=== PATIENT | male | born 1960 | race Caucasian/White ===

== ENCOUNTER 2018-05-13 17:00 | Emergency (ER) | payer SELFPAY ==
[~2018-05-13] VITALS: Ht 185.4 cm; Wt 113.4 kg
--- NOTE | 2018-05-13 17:20 | ED UPPER/LOWER EXTREMITY COMPL ---
History of Present Illness General Chief Complaint: Laceration Procedure Stated Complaint: RLE LAC Source: patient Exam Limitations: no limitations Vital Signs & Intake/Output Vital Signs & Intake/Output Vital Signs Date Time Temp Pulse Resp B/P B/P Pulse O2 O2 Flow FiO2 Mean Ox Delivery Rate 05/13 1810 Room Air 05/13 1722 98.2 92 22 141/77 94 Room Air Allergies Coded Allergies: No Known Allergies (05/13/18) Reconcile Medications Aspirin (Ecotrin*) 81 MG TABLET.DR 1 TAB PO DAILY HEART/BLOOD (Reported) Buprenorphine HCl/Naloxone HCl (Buprenorphn-Naloxn 2-0.5 MG Sl) 2 MG-0.5 MG TAB.SUBL 1 TAB SL Q3-4D MENTAL HEALTH (Reported) Eszopiclone (Lunesta) 2 MG TABLET 1 TAB PO QPM SLEEP (Reported) Metformin HCl 500 MG TABLET 1 TAB PO BID DM (Reported) Triage Note: PT BIBA FROM HOME WITH C/O RLE LACERATION. PT STATES HE WAS MOVING FURNITURE AND HE BUMPED AGAINST HIS LEG AGAINST A METAL BED FRAME. PT STATES LEG WAS BLEEDING TO THE POINT THAT HIS SOCK WAS SATURATED. PT ARRIVES AWAKE AND ALERT, C/O 9/10 RLE PAIN; REQUESTING MEDICATIONS ON ARRIVAL. BLEEDING CONTROLLED INTERNAL MEDICINE DOCTOR. 3CM VERTICAL WOUND VISUALIZED ON RIGHT COOPER. APPEARS CONFUSED, AND ANSWERS SOME QUESTIONS INAPPROPRIATELY Triage Nurses Notes Reviewed? yes Onset: Gradual Duration: hour(s): Timing: recent history Severity: moderate Pain/Injury Location: Right: Leg. HPI: 58-year-old male brought in by ambulance for laceration to right chin. Patient states that he was moving a cabinette when he accidentally sustained laceration anterior cooper. Bleeding was controlled prior to arrival. PAtient reports chronic swelling to right lower extremity however does note recent worsening. Patient states he is up-to-date on his tetanus vaccine. (Elvira Mcdonald) Past History Medical History Any Pertinent Medical History? see below for history Endocrine: diabetes Surgical History Surgical History: non-contributory Family History Hx Contributory? No (Elvira Mcdonald) Review of Systems Review of Systems Constitutional: Reports: no symptoms. EENTM: Reports: no symptoms. Respiratory: Reports: no symptoms. Cardiovascular: Reports: edema. Gastrointestinal/Abdominal: Reports: no symptoms. Genitourinary: Reports: no symptoms. Musculoskeletal: Reports: see HPI. Skin: Reports: see HPI. Neurological/Psychological: Reports: no symptoms. Hematologic/Endocrine: Reports: no symptoms. Immunological: Reports: no symptoms. All Other Systems: Reviewed and Negative (Elvira Mcdonald) Physical Exam Physical Exam General Appearance: well developed/nourished, no apparent distress, alert, awake Head: atraumatic, normal appearance Eyes: Bilateral: normal appearance. Ears, Nose, Throat: hearing grossly normal Neck: normal inspection, supple, full range of motion Cardiovascular/Respiratory: no respiratory distress Back: normal inspection, normal range of motion Leg Left: normal range of motion, normal inspection, 1-2+ pitting edema Leg Right: 3+ pitting edema, 3 cm linear laceration to anterior cooper Neurologic/Tendon: normal sensation, normal tendon functions Skin: see laceration as mentioned above (Elvira Mcdonald) Progress Differential Diagnosis: contusion, DVT, sprain, laceration, dependent edema Plan of Care: Current Medications Sig/Kendell Start time Last Medication Dose Stop Time Status Admin Lidocaine 20 ML ONCE ONE 05/13 1730 UNVr (Lidocaine 1%) 05/13 1731 Laceration was closed using sutures. I encouraged ultrasound here in the emergency department given worsening swelling. Patient initially consents, Dr. Shepherd presents to perform US at bedside the patient now declining ultrasound, states he'll follow-up with primary care doctor. I informed the patient of risks to leaving without further diagnostic studies including DVT, PE stitches to go home at this time. He understands that he is signing out AGAINST MEDICAL ADVICE. Patient educated on signs and symptoms of skin infection and return for removal of stitches. (Elvira Mcdonald) Departure Departure Disposition: LEFT AGAINST MEDICAL ADVICE Condition: Stable Clinical Impression Primary Impression: Laceration Secondary Impressions: Pedal edema Additional Instructions: Leaving AGAINST MEDICAL ADVICE prior to obtaining ultrasound. It is recommended that he follow up with outpatient ultrasound. Also follow-up with your primary care doctor. Return in 7-10 days for removal of stitches. Monitor for signs of redness, swelling, increasing pain to site of stitches. Return sooner if any of the symptoms or other concerns. Please note that there might be incidental findings in your evaluation that are unrelated to the current emergency department visit. Please notify your primary care doctor about this emergency department visit in order to obtain and review all of the testing performed so that these incidental findings can be monitored as needed. If you had an x-ray performed, please understand that some fractures may not be seen on the initial set of x-rays. If your symptoms persist you might need a repeat set of x-rays to check for such a fracture. If you had a laceration evaluated, please understand that foreign bodies such as glass or wood may not be visible to the naked eye or on plain x-rays. If the wound becomes red, swollen, increasingly more painful or if there is any drainage from the wound, please have it reevaluated by a physician for the possibility of a retained foreign body. If you're unable to follow up as outlined in the discharge instructions please return to the emergency department. Thank you for choosing the [facility] Emergency Department for your care. It was a pleasure to serve you today. Departure Forms: Customer Survey General Discharge Information (Elvira Mcdonald) PA/ROUTER OPERATOR Co-Sign Statement Statement: ED Attending supervision documentation- [] I saw and evaluated the patient. I have also reviewed all the pertinent lab results and diagnostic results. I agree with the findings and the plan of care as documented in the PA's/ROUTER OPERATOR's documentation. [x] I have reviewed the ED Record and agree with the PA's/ROUTER OPERATOR's documentation. [] Additions or exceptions (if any) to the PAs/ROUTER OPERATOR's note and plan are summarized below: [] (Cora LIZAMA,[facility]) Procedures Laceration/Wound Repair Laceration/Wound Repair: Wound Location: right anterior cooper Wound's Depth, Shape: linear Wound Length (cm): 3 Wound Explored: irrigated extensively Irrigated w/ Saline (ccs): 200 Betadine Prep? Yes Anesthesia: 1% lidocaine, lidocaine w/ epi Volume Anesthetic (ccs): 5 Wound Repaired With: sutures Suture Size/Type: 4:0, nylon Number of Sutures: 5 Sterile Dressing Applied: Yes Tetanus Status: up to date Progress: Sutures placed by PA student with my direct supervision. Patient tolerated procedure well. (Elvira Mcdonald)
[2018-05-13 17:22] VITALS: BP 141/77
[2018-05-13] MEDS ORDERED: BUPRENORPHN-NA1 EACH SL (17:49)
[2018-05-13] MEDS ORDERED: METFORMIN HCL500 M3 PO (17:50)
[2018-05-13] MEDS ORDERED: ASPIRIN EC81 M1 PO (17:50)
[2018-05-13] MEDS ORDERED: LUNESTA2 M1 PO (17:50)
== END 2018-05-13 18:29 | disposition left against medical advice (07) ==
LOC: ERH 17:00
DX: S81.811A Laceration without foreign body, right lower leg, initial encounter (principal); R60.0 Localized edema; X58.XXXA Exposure to other specified factors, initial encounter; Y93.89 Activity, other specified

== ENCOUNTER 2018-05-26 21:47 | Emergency (ER) | payer OTHER, MEDICARE ==
[~2018-05-26] VITALS: Ht 185.4 cm; Wt 115.2 kg
[~2018-05-26 21:47] MED LIST: ASPIRIN EC81 M1 PO; BUPRENORPHN-NA1 EACH SL; LUNESTA2 M1 PO; METFORMIN HCL500 M3 PO
[2018-05-26 21:59] VITALS: BP 168/92
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
--- NOTE | 2018-05-26 23:23 | RADIOLOGY REPORT ---
EXAMINATION: XR CHEST CLINICAL INFORMATION: Bilateral lower extremity swelling COMPARISON: None TECHNIQUE: 2 views of the chest were obtained. FINDINGS: The lungs are well expanded. There is no focal consolidation, edema, or effusion. Mild bronchial wall thickening. No pneumothorax. The cardiomediastinal silhouette is within normal limits. No acute osseous abnormality. IMPRESSION: Bronchial wall thickening without overt edema which could be associated with mild fluid overload. Small airways process could have this appearance.
== END 2018-05-27 00:29 | disposition left against medical advice (07) ==
LOC: ERH 21:47
DX: M79.89 Other specified soft tissue disorders (principal)
CPT/HCPCS: 71046